=== PATIENT | male | born 1960 | race Caucasian/White ===

== ENCOUNTER 2019-11-27 16:52 | Emergency (ER) | payer BC ==
[~2019-11-27] VITALS: Ht 175.3 cm; Wt 78.5 kg
[2019-11-27 16:56] VITALS: BP_SYST 143
[2019-11-27 20:31] LABS: BASOPHILS # (AUTO) 0.1 K/uL (0.0-0.2); BASOPHILS % (AUTO) 0.8 % (0.0-2.0); EOSINOPHILS # (AUTO) 0.2 K/uL (0.0-0.4); HEMATOCRIT 42.3 % (36-54); HEMOGLOBIN 14.6 g/dL (14.0-18.0); LYMPHOCYTES # (AUTO) 2.5 K/uL (1.0-5.5); LYMPHOCYTES % (AUTO) 27.4 % (20.5-51.5); MEAN CORPUSCULAR HEMOGLOBIN 31 pg (27-31); MEAN CORPUSCULAR HGB CONC 35 % (32-36); MEAN CORPUSCULAR VOLUME 90 fL (79.0-98.0); MONOCYTES # (AUTO) 0.6 K/uL (0.0-1.0); MONOCYTES % (AUTO) 6.8 % (1.7-9.3); NEUTROPHILS # (AUTO) 5.7 K/uL (1.8-7.7); PLATELET COUNT (AUTO) 256 K/uL (130-430); RED CELL DISTRIBUTION WIDTH 13.8 % (9.0-15.0)
[2019-11-27 20:40] LABS: CALCIUM 9.7 mg/dL (8.4-11.0); CREATININE 1.24 mg/dL (0.55-1.30); POTASSIUM 4.9 mmol/L (3.5-5.1)
[2019-11-27 20:41] LABS: INR 1.1 (0.80-1.20)
[2019-11-27 20:46] LABS: ALBUMIN 4.3 g/dL (3.4-4.8); TOTAL BILIRUBIN 0.5 mg/dL (0.0-1.0)
[2019-11-27] MEDS ORDERED: levETIRAcetam 1,000 MG in NS 100 ML IV ONE (21:00)
[2019-11-27 22:01] VITALS: BP_SYST 147
== END 2019-11-27 21:55 | disposition short-term general hospital (02) ==
LOC: SED 16:52
DX: C71.2 Malignant neoplasm of temporal lobe (principal); R42 Dizziness and giddiness; I10 Essential (primary) hypertension
CPT/HCPCS: 36415; 70450; 71045; 80053; 85025; 85610; 85730; 93005; 93880; 96365; 99285; J1953